=== PATIENT | male | born 1970 | race Caucasian/White ===

== ENCOUNTER 2016-10-25 16:12 | Outpatient (CLI) ==
[2016-10-25 18:08] LABS: BASOPHILS # (AUTO) 0.1 K/uL (0-0.2); BASOPHILS % (AUTO) 0.6 % (0.0-3.0); EOSINOPHILS # (AUTO) 0.3 K/ul (0.0-0.7); EOSINOPHILS % (AUTO) 2.1 % (0.0-7.0); HEMATOCRIT 45.1 % (42.0-52.0); HEMOGLOBIN 16.1 g/dl (14.0-18.0); IMMATURE GRANULOCYTE % (AUTO) 0.3 % (0.0-5.0); LYMPHOCYTES % (AUTO) 25.6 (10.0-50.0); MEAN CORPUSCULAR HGB CONC 35.7 (31.8-35.4); MONOCYTES # (AUTO) 0.9 K/uL (0.4-2.0); MONOCYTES % (AUTO) 7.3 (0-10); NEUTROPHILS # (AUTO) 7.5 K/ul (2.0-6.9); NEUTROPHILS % (AUTO) 64.1; PLATELET COUNT 254 10^3/uL (140-440); WHITE BLOOD COUNT 11.77 K/ul (4.2-10.2)
[2016-10-25 18:37] LABS: ALBUMIN 3.9 g/dL (3.4-5.0); ALBUMIN/GLOBULIN RATIO 0.98; ANION GAP 15.5; BILIRUBIN,TOTAL 1.72 mg/dL (0.00-1.20); BUN/CREATININE RATIO 16.66; CALCIUM 9.9 mg/dL (8.2-10.2); CHOL/HDL RATIO 6.4 (4.5-6.4); CREATININE 0.96 mg/dL (0.60-1.10); POTASSIUM 3.5 mmol/L (3.5-5.1); TOTAL PROTEIN 7.9 g/dL (6.4-8.2)
== END 2016-10-25 16:13 | disposition home or self-care (01) ==
LOC: LAB 16:12
PROVIDERS: ATTEND Nurse Practitioner Family
DX: E11.9 Type 2 diabetes mellitus without complications (principal); M19.90 Unspecified osteoarthritis, unspecified site
CPT/HCPCS: 36415; 80053; 80061; 83036; 84443; 85025

== ENCOUNTER 2017-04-23 12:37 | Outpatient (CLI) ==
[2017-04-23 13:34] LABS: BASOPHILS # (AUTO) 0.1 K/uL (0-0.2); BASOPHILS % (AUTO) 0.6 % (0.0-3.0); EOSINOPHILS # (AUTO) 0.2 K/ul (0.0-0.7); EOSINOPHILS % (AUTO) 1.9 % (0.0-7.0); HEMATOCRIT 46.9 % (42.0-52.0); HEMOGLOBIN 16.5 g/dl (14.0-18.0); IMMATURE GRANULOCYTE % (AUTO) 0.3 % (0.0-5.0); LYMPHOCYTES # (AUTO) 1.9 K/uL (0.60-3.4); LYMPHOCYTES % (AUTO) 17.8 (10.0-50.0); MEAN CORPUSCULAR HEMOGLOBIN 35.3 pg (27.0-31.0); MEAN CORPUSCULAR HGB CONC 35.2 (31.8-35.4); MEAN CORPUSCULAR VOLUME 100.2 fl (80.0-94.0); MONOCYTES # (AUTO) 1.7 K/uL (0.4-2.0); MONOCYTES % (AUTO) 15.6 (0-10); NEUTROPHILS # (AUTO) 6.8 K/ul (2.0-6.9); NEUTROPHILS % (AUTO) 63.8; PLATELET COUNT 247 10^3/uL (140-440); RED BLOOD COUNT 4.68 10^6/ul (4.70-6.10); WHITE BLOOD COUNT 10.68 K/ul (4.2-10.2)
[2017-04-23 14:20] LABS: ALBUMIN 3.7 g/dL (3.4-5.0); ALBUMIN/GLOBULIN RATIO 0.93; ANION GAP 12.9; BILIRUBIN,TOTAL 0.79 mg/dL (0.00-1.20); CALCIUM 9.5 mg/dL (8.2-10.2); CHOL/HDL RATIO 5.9 (4.5-6.4); POTASSIUM 3.9 mmol/L (3.5-5.1); TOTAL PROTEIN 7.7 g/dL (6.4-8.2)
== END 2017-04-23 12:38 | disposition home or self-care (01) ==
LOC: LAB 12:37
PROVIDERS: ATTEND Nurse Practitioner Family
DX: E11.9 Type 2 diabetes mellitus without complications (principal); E75.6 Lipid storage disorder, unspecified; M19.90 Unspecified osteoarthritis, unspecified site
CPT/HCPCS: 36415; 80053; 80061; 83036; 84439; 84443; 85025

== ENCOUNTER 2017-09-05 09:35 | Outpatient (CLI) | END 2017-09-05 09:36 | disposition home or self-care (01) | LOC: RHC-LAB 09:35 | PROVIDERS: ATTEND Emergency Medicine | DX: E11.9 Type 2 diabetes mellitus without complications (principal); E78.1 Pure hyperglyceridemia; F17.200 Nicotine dependence, unspecified, uncomplicated | CPT/HCPCS: 36415; 80053; 80061; 83036; 84443; 85007; 85025 ==

== ENCOUNTER 2017-10-02 15:01 | Outpatient (CLI) ==
--- NOTE | 2017-10-03 11:17 | MRI ---
EXAM: Brain MRI without contrast. HISTORY: Headache. COMPARISON: None. TECHNIQUE: Multiplanar, multisequence MR images were acquired of the brain without contrast. FINDINGS: The midline structures are central and the craniocervical junction is unremarkable. The v entricles, sulci and cisterns are normal in size and configuration for the patient's age. There are no abnormal extra-axial fluid collections. The brain parenchyma has no restricted diffusion to suggest acute hypoperfusion or infarction. There are no abnormal T2 hyperintensities or foci of dark gradient echo signal. The corpus callosum is no rmal. The pituitary gland is unremarkable. There are no intraorbital masses. Paranasal sinuses are unremarkable. There is mild adenoidal hyper trophy with tiny nasopharyngeal submucosal cyst. There is mucosal thickening and fluid completely opacifying the middle ears and mastoid air cells anita aterally compatible with extensive bilateral otomastoiditis. Flow voids are present in the major intracranial arteries and dural venous sinuses. The flow voids i n the vertebral basilar system are small. IMPRESSION: 1. No intracranial mass, hemorrhage or acute cerebral infarct. 2. Extensive bilateral otomastoiditis. ENT consultation may be helpful.
== END 2017-10-02 15:02 | disposition home or self-care (01) ==
LOC: RAD 15:01
PROVIDERS: ATTEND Nurse Practitioner Family
DX: M54.2 Cervicalgia (principal); R51 Headache

== ENCOUNTER 2017-12-18 16:00 | Outpatient (CLI) | END 2017-12-18 16:01 | disposition home or self-care (01) | LOC: FCC-LAB 16:00 | PROVIDERS: ATTEND Family Medicine | DX: E78.2 Mixed hyperlipidemia (principal); E11.9 Type 2 diabetes mellitus without complications; I10 Essential (primary) hypertension | CPT/HCPCS: 36415; 80053; 80061; 83037; 85025 ==

== ENCOUNTER 2018-03-28 19:02 | Outpatient (CLI) | END 2018-03-28 19:03 | disposition home or self-care (01) | LOC: LAB 19:02 | PROVIDERS: ATTEND Family Medicine | DX: B35.1 Tinea unguium (principal) | CPT/HCPCS: 36415; 87101 ==

== ENCOUNTER 2018-05-31 11:30 | Outpatient (CLI) | END 2018-05-31 11:31 | disposition home or self-care (01) | LOC: LAB 11:30 → FCC-LAB 11:31 | PROVIDERS: ATTEND Pediatrics Pediatric Cardiology | DX: E83.52 Hypercalcemia (principal); R71.8 Other abnormality of red blood cells | CPT/HCPCS: 36415; 82043; 82330; 82607; 82746 ==

== ENCOUNTER 2018-08-16 12:15 | Outpatient (CLI) | END 2018-08-16 12:16 | disposition home or self-care (01) | LOC: RHC-LAB 12:15 → FCC-LAB 12:16 | PROVIDERS: ATTEND Family Medicine | DX: E11.9 Type 2 diabetes mellitus without complications (principal); E78.5 Hyperlipidemia, unspecified | CPT/HCPCS: 36415; 80053; 80061; 83037; 85025 ==